=== PATIENT | female | born 1955 | race American Indian/Alaskan Native ===

== ENCOUNTER 2017-11-15 14:51 | Emergency (ER) | payer SELFPAY ==
[2017-11-15 15:19] VITALS: BP 168/98
== END 2017-11-15 19:35 | disposition left against medical advice (07) ==
LOC: ED 14:51
DX: I10 Essential (primary) hypertension (principal); Z53.21 Procedure and treatment not carried out due to patient leaving prior to being seen by health care provider

== ENCOUNTER 2019-07-18 16:54 | Emergency (ER) | payer MEDICARE ==
[2019-07-18] MEDS ORDERED: cloNIDine 0.1 MG TAB PO ONE (17:39)
--- NOTE | 2019-07-18 17:42 | Emergency Department Report ---
ED Headache HPI - General Chief Complaint: Headache Stated Complaint: HEADACHE/HTN Time Seen by Provider: 07/18/19 17:29 Source: patient Exam Limitations: no limitations - History of Present Illness Initial Comments: 64-year-old female the past medical history of hypertension, COPD, and CHF presents to the hospital complaining of frontal headache that started this afternoon. Patient states the headache was mild. She took a BC powder and had one episode of vomiting. Headache has now resolved. She denies blurry vision, syncope, focal weakness, focal numbness, or neck pain. Patient has been noncompliant with her carvedilol 12.5 mg twice daily and amlodipine 10 mg daily x1 month. A friend of hers gave her some carvedilol tablets which she restarted yesterday. She denies chest pain or shortness of breath patient also states she is currently homeless. pt has been told that she has had abnormal kidney function in the past Allergies/Adverse Reactions: Allergies No Known Allergies Allergy (Unverified 11/15/17 15:19) Home Medications: Ambulatory Orders Amlodipine Besylate [Norvasc] 10 mg PO DAILY 30 Days tablet 07/18/19 carvediloL [Coreg] 12.5 mg PO BID #60 tablet 07/18/19 ED Review of Systems ROS: Stated complaint: HEADACHE/HTN Other details as noted in HPI Comment: All other systems reviewed and negative ED Past Medical Hx - Past Medical History Previous Medical History?: Yes Hx Hypertension: Yes Hx Congestive Heart Failure: Yes Hx COPD: Yes - Social History Smoking Status: Former Smoker Substance Use Type: None - Medications Home Medications: Home Medications Medication Instructions Recorded Confirmed Last Taken Type Amlodipine Besylate [Norvasc] 10 mg PO DAILY 30 Days tablet 07/18/19 Unknown Rx carvediloL [Coreg] 12.5 mg PO BID #60 tablet 07/18/19 Unknown Rx ED Physical Exam - General Limitations: No Limitations - Other Other exam information: General: No acute distress Head: Atraumatic Eyes: normal appearance ENT: Moist mucous membranes Neck: Normal appearance, no midline tenderness, no rectal rigidity Chest: Clear to auscultation bilaterally CV: Regular rate and rhythm Abdomen: Soft, normal bowel sounds, nontender, nondistended, no rebound or guarding Back: Normal inspection Extremity: Normal inspection, full range of motion Neuro: Alert O x 3, no facial asymmetry, speech clear, no gross motor sensory deficit, [id number] function Psych: Appropriate behavior Skin: No rash, ED Course Vital Signs 07/18/19 07/18/19 07/18/19 17:41 18:02 18:28 Temperature 98.0 F Pulse Rate 81 82 83 Respiratory 36 H 30 H Rate Blood Pressure 204/133 Blood Pressure 207/115 208/122 [Left] O2 Sat by Pulse 96 97 Oximetry 07/18/19 07/18/19 07/18/19 19:02 19:20 20:28 Temperature 98.6 F Pulse Rate 78 80 86 Respiratory 30 H 19 16 Rate Blood Pressure 160/115 Blood Pressure 191/116 169/114 160/115 [Left] O2 Sat by Pulse 97 99 97 Oximetry 07/18/19 07/18/19 21:34 23:00 Temperature 98.3 F Pulse Rate 82 77 Respiratory 24 30 H Rate Blood Pressure 142/90 Blood Pressure 148/92 [Left] O2 Sat by Pulse 99 91 Oximetry ED Medical Decision Making - Lab Data Result diagrams: 07/18/19 17:51 07/18/19 17:51 Lab Results 07/18/19 07/18/19 Range/Units 17:51 17:51 WBC 6.0 (4.5-11.0) K/mm3 RBC 4.25 (3.65-5.03) M/mm3 Hgb 11.8 (10.1-14.3) gm/dl Hct 36.4 (30.3-42.9) % MCV 86 (79-97) fl MCH 28 (28-32) pg MCHC 32 (30-34) % RDW 19.2 H (13.2-15.2) % Plt Count 340 (140-440) K/mm3 Lymph % (Auto) 17.6 (13.4-35.0) % Pershing % (Auto) 9.8 H (0.0-7.3) % Eos % (Auto) 2.7 (0.0-4.3) % Baso % (Auto) 1.5 (0.0-1.8) % Lymph # 1.1 L (1.2-5.4) K/mm3 Pershing # 0.6 (0.0-0.8) K/mm3 Eos # 0.2 (0.0-0.4) K/mm3 Baso # 0.1 (0.0-0.1) K/mm3 Seg Neutrophils % 68.4 (40.0-70.0) % Seg Neutrophils # 4.1 (1.8-7.7) K/mm3 Sodium 141 (137-145) mmol/L Potassium 4.1 (3.6-5.0) mmol/L Chloride 104.2 (98-107) mmol/L Carbon Dioxide 25 (22-30) mmol/L Anion Gap 16 mmol/L BUN 44 H (7-17) mg/dL Creatinine 2.8 H (0.7-1.2) mg/dL Estimated GFR 20 ml/min BUN/Creatinine Ratio 16 % Glucose 97 (65-100) mg/dL Calcium 8.8 (8.4-10.2) mg/dL - Medical Decision Making pt pain free without physical complaints throughout entire ED period of observation Blood pressure improved after ED meds Hypertension likely secondary to noncompliance Patient noted to have renal insufficiency. No previous medical record or labs available for review. Renal/likely chronic given lack of acidosis or hyperkalemia. Patient will be provided a refill and Norvasc and carvedilol and outpatient follow-up with primary care doctor and registered route associate recommended. Patient will be advised to stay away from nephrotoxic agents including BC powder/aspirin, and NSAIDs - Differential Diagnosis Hypertensive emergency, hypertensive headache, Critical Care Time: No Critical care attestation.: If time is entered above; I have spent that time in minutes in the direct care of this critically ill patient, excluding procedure time. ED Disposition Clinical Impression: Uncontrolled hypertension, Headache, Renal insufficiency, Medical clearance for psychiatric admission Disposition: TO HOME OR SELFCARE Is pt being admited?: No Condition: Stable Instructions: Acute Headache (ED), Hypertension (ED), Impaired Kidney Function (ED) Additional Instructions: Take the medication as prescribed. Follow-up with your doctor or doctor/clinic provided. It is very important that you follow-up with both a primary care doctor and a kidney specialist for adjustments in your meds, monitoring of your blood pressure and kidney function. Return if symptoms worsen as indicated by your discharge instructions. Avoid aspirin, Goody powders, ibuprofen, NSAID, Motrin, or Aleve because these may worsen kidney function Prescriptions: carvediloL [Coreg] 12.5 mg PO BID #60 tablet Amlodipine Besylate [Norvasc] 10 mg PO DAILY 30 Days tablet Referrals: [facility] [Provider Group] - 3-5 Days (Primary care clinic) [facility] [Outside] - 3-5 Days (Primary care clinic) TJ TIM MD [Staff Physician] - 3-5 Days (Primary care doctor) LORRAINE FERNANDES MD [Primary Care Provider] - 3-5 Days CHRISTIANO STEINER MD [Staff Physician] - 3-5 Days (Primary care doctor) YANDEL WHEELER MD [Staff Physician] - 7-10 days (kidney specialist )
[2019-07-18 18:05] LABS: Basophils # (Auto) 0.1 K/mm3 (0.0-0.1); Basophils % (Auto) 1.5 % (0.0-1.8); Eosinophils # (Auto) 0.2 K/mm3 (0.0-0.4); Eosinophils % (Auto) 2.7 % (0.0-4.3); Hematocrit 36.4 % (30.3-42.9); Hemoglobin 11.8 gm/dl (10.1-14.3); Lymphocytes # (Auto) 1.1 K/mm3 (1.2-5.4); Lymphocytes % (Auto) 17.6 % (13.4-35.0); Mean Corpuscular HGB Conc 32 % (30-34); Mean Corpuscular Volume 86 fl (79-97); Monocytes # (Auto) 0.6 K/mm3 (0.0-0.8); Monocytes % (Auto) 9.8 % (0.0-7.3); Platelet Count 340 K/mm3 (140-440); Red Blood Count 4.25 M/mm3 (3.65-5.03); Red Cell Distribution Width 19.2 % (13.2-15.2)
[2019-07-18 18:24] LABS: Calcium 8.8 mg/dL (8.4-10.2)
[2019-07-18] MEDS ORDERED: amLODIPine 5 MG TAB PO ONE (19:47)
[2019-07-18 23:20] VITALS: BP 142/90
== END 2019-07-19 12:20 | disposition home or self-care (01) ==
LOC: ED 16:54
DX: N28.9 Disorder of kidney and ureter, unspecified (principal); I11.0 Hypertensive heart disease with heart failure; I50.9 Heart failure, unspecified; J44.9 Chronic obstructive pulmonary disease, unspecified; Z87.891 Personal history of nicotine dependence
CPT/HCPCS: 36415; 80048; 85025

== ENCOUNTER 2019-08-21 18:45 | Inpatient (IN) | payer MEDICARE ==
--- NOTE | 2019-08-21 19:35 | Emergency Department Report ---
ED Altered Mental Status HPI - General Chief Complaint: Altered Mental Status Stated Complaint: AMS Time Seen by Provider: 08/21/19 19:16 Source: patient, family, old records reviewed (er visit 07/18/19 for htn, headache, med noncompliance, no previous admission for review) Mode of arrival: Wheelchair Limitations: Altered Mental Status - History of Present Illness Initial Comments: 64-year-old female with a past medical history of hypertension, CHF, and COPD with home oxygen use presents to the hospital with lethargy and confusion. Apparently daughter reported that patient has had symptoms x3 days with worsening symptoms today. Patient has been noncompliant with her oxygen at home. Patient initial room air saturation upon arrival was 80 to 85%. Patient is lethargic. She will not say her name and is not oriented to place or year. She does follow some commands but requires repeated commands before performing test. She denies any pain currently. Patient satting 100% on 3 L at the bedside. O2 reduced to 2 L and ABG requested. At 9:30 PM collateral information obtained from patient's daughter maria del carmen Rubin . She states patient was discharged into a transition house during last hospital visit. Chart review patient was discharged to a transitional house after case management consultation in the ER. Pt's daughter visited her at the transition home noticed that she has been a steady decline last 3 days. She also states that patient is not always compliant with her treatment and continues to abuse crack cocaine. No history of alcohol abuse. Daughter Scottie in ED requests updates or to be called with questions. Number on demographics sheet. - Related Data Previous Rx's Medication Instructions Recorded Last Taken Type Amlodipine Besylate [Norvasc] 10 mg PO DAILY 30 Days tablet 07/18/19 Unknown Rx carvediloL [Coreg] 12.5 mg PO BID #60 tablet 07/18/19 Unknown Rx Allergies Allergy/AdvReac Type Severity Reaction Status Date / Time No Known Allergies Allergy Unverified 11/15/17 15:19 ED Review of Systems ROS: Stated complaint: AMS Other details as noted in HPI Comment: Unobtainable due to pts medical conditions ED Past Medical Hx - Past Medical History Previous Medical History?: Yes Hx Hypertension: Yes Hx Congestive Heart Failure: Yes Hx COPD: Yes - Surgical History Past Surgical History?: No - Social History Smoking Status: Former Smoker Substance Use Type: None - Medications Home Medications: Home Medications Medication Instructions Recorded Confirmed Last Taken Type Amlodipine Besylate [Norvasc] 10 mg PO DAILY 30 Days tablet 07/18/19 Unknown Rx carvediloL [Coreg] 12.5 mg PO BID #60 tablet 07/18/19 Unknown Rx ED Physical Exam - General Limitations: Altered Mental Status - Other Other exam information: General: Lethargic Head: Atraumatic Eyes: normal appearance ENT: Moist mucous membranes Neck: Normal appearance, no midline tenderness Chest: No tachypnea or accessory muscle use while on oxygen, fine crackles bilaterally without wheezing CV: Regular rate and rhythm Abdomen: Soft, normal bowel sounds, mild generalized abdominal tenderness to palpation Back: Normal inspection Extremity: Normal inspection, full range of motion Neuro: Lethargic, equal handgrip, equal knee flexion and foot dorsiflexion. Sensation grossly intact. Psych: Appropriate behavior Skin: No rash ED Course Vital Signs 08/21/19 08/21/19 08/21/19 18:53 19:22 19:30 Temperature 97.7 F Pulse Rate 88 91 H Pulse Rate [ Bilateral Throughout] Respiratory 32 H 16 Rate Respiratory Rate [Bilateral Throughout] Blood Pressure 100/81 142/99 O2 Sat by Pulse 82 L 96 97 Oximetry 08/21/19 08/21/19 08/21/19 19:40 19:45 21:37 Temperature Pulse Rate 89 89 Pulse Rate [ 88 Bilateral Throughout] Respiratory 23 41 H Rate Respiratory 24 Rate [Bilateral Throughout] Blood Pressure 106/84 137/90 O2 Sat by Pulse 100 100 Oximetry - Reevaluation(s) Reevaluation #1: 08/21/19 21:03 I called the lab about a potassium of 6.3. They state that the sample is not hemolyzed. Also got a AST was upgraded 54 and ALT result greater than 48. I have never received a result like this therefore I called the lab. I am pretty sure that the machine can result in greater then the Posted values and I am unclear why they are being resulted this way. I called the lab to see if a more specific number can be obtained. She was fine at that they will be run the same - Lab Data Result diagrams: 08/21/19 19:05 08/21/19 20:52 Lab Results 08/21/19 08/21/19 08/21/19 Range/Units 19:05 19:10 19:11 WBC 6.5 (4.5-11.0) K/mm3 RBC 4.73 (3.65-5.03) M/mm3 Hgb 12.1 (10.1-14.3) gm/dl Hct 40.6 (30.3-42.9) % MCV 86 (79-97) fl MCH 26 L (28-32) pg MCHC 30 (30-34) % RDW 18.4 H (13.2-15.2) % Plt Count 239 (140-440) K/mm3 Add Manual Diff Complete Total Counted 100 Seg Neuts % (Manual) 72.0 H (40.0-70.0) % Band Neutrophils % 0 % Lymphocytes % (Manual) 16.0 (13.4-35.0) % Reactive Lymphs % (Man) 0 % Monocytes % (Manual) 12.0 H (0.0-7.3) % Eosinophils % (Manual) 0 (0.0-4.3) % Basophils % (Manual) 0 (0.0-1.8) % Metamyelocytes % 0 % Myelocytes % 0 % Promyelocytes % 0 % Blast Cells % 0 % Nucleated RBC % Not Reportable Seg Neutrophils # Man 4.7 (1.8-7.7) K/mm3 Band Neutrophils # 0.0 K/mm3 Lymphocytes # (Manual) 1.0 L (1.2-5.4) K/mm3 Abs React Lymphs (Man) 0.0 K/mm3 Monocytes # (Manual) 0.8 (0.0-0.8) K/mm3 Eosinophils # (Manual) 0.0 (0.0-0.4) K/mm3 Basophils # (Manual) 0.0 (0.0-0.1) K/mm3 Metamyelocytes # 0.0 K/mm3 Myelocytes # 0.0 K/mm3 Promyelocytes # 0.0 K/mm3 Blast Cells # 0.0 K/mm3 WBC Morphology Not Reportable Hypersegmented Neuts Not Reportable Hyposegmented Neuts Not Reportable Hypogranular Neuts Not Reportable Smudge Cells Not Reportable Toxic Granulation Not Reportable Toxic Vacuolation Not Reportable Dohle Bodies Not Reportable Pelger-Huet Anomaly Not Reportable Sandoval Rods Not Reportable Platelet Estimate Not Reportable Clumped Platelets Not Reportable Plt Clumps, EDTA Not Reportable Large Platelets Not Reportable Giant Platelets Not Reportable Platelet Satelliting Not Reportable Plt Morphology Comment Not Reportable RBC Morphology Not Reportable Dimorphic RBCs Not Reportable Polychromasia Not Reportable Hypochromasia 1+ Poikilocytosis Not Reportable Anisocytosis 1+ Microcytosis 1+ Macrocytosis Not Reportable Spherocytes Not Reportable Pappenheimer Bodies Not Reportable Sickle Cells Not Reportable Target Cells Not Reportable Tear Drop Cells Not Reportable Ovalocytes Not Reportable Helmet Cells Not Reportable [place] Bodies Not Reportable Alpha Rings Not Reportable Carencro Cells Not Reportable Bite Cells Not Reportable Crenated Cell Not Reportable Elliptocytes Not Reportable Acanthocytes (Spur) Not Reportable Rouleaux Not Reportable Hemoglobin C Crystals Not Reportable Schistocytes Not Reportable Malaria parasites Not Reportable Alexander Bodies Not Reportable Hem Pathologist Commnt No PT 13.8 (12.2-14.9) Sec. INR 1.05 (0.87-1.13) ABG pH (7.350-7.450) pH Units ABG pCO2 mm Hg ABG pO2 (80.0-90.0) mm Hg ABG HCO3 (20.0-26.0) mmol/L ABG O2 Saturation (95.0-99.0) % ABG O2 Content (0.0-44) ABG Base Excess (-2.0-3.0) mmol/L ABG Hemoglobin (12.0-16.0) gm/dl ABG Carboxyhemoglobin (0.0-5.0) % ABG Methemoglobin (0.0-1.5) % Oxyhemoglobin (95.0-99.0) % FiO2 % Sodium (137-145) mmol/L Potassium (3.6-5.0) mmol/L Chloride (98-107) mmol/L Carbon Dioxide (22-30) mmol/L Anion Gap mmol/L BUN (7-17) mg/dL Creatinine (0.7-1.2) mg/dL Estimated GFR ml/min BUN/Creatinine Ratio % Glucose (65-100) mg/dL POC Glucose 95 (70-105) Calcium (8.4-10.2) mg/dL Total Bilirubin (0.1-1.2) mg/dL Direct Bilirubin (0-0.2) mg/dL Indirect Bilirubin mg/dL AST (5-40) units/L ALT (7-56) units/L Alkaline Phosphatase (35-129) units/L Ammonia (25-60) umol/L Total Creatine Kinase (30-135) units/L Troponin T (0.00-0.029) ng/mL NT-Pro-B Natriuret Pep (0-900) pg/mL Total Protein (6.3-8.2) g/dL Albumin (3.9-5) g/dL Albumin/Globulin Ratio % Triglycerides (2-149) mg/dL Cholesterol (50-199) mg/dL LDL Cholesterol Direct (50-130) mg/dL HDL Cholesterol (40-59) mg/dL Cholesterol/HDL Ratio % TSH (0.270-4.200) mlU/mL Free T4 (0.76-1.46) ng/dL 08/21/19 08/21/19 08/21/19 Range/Units 19:11 19:11 19:11 WBC (4.5-11.0) K/mm3 RBC (3.65-5.03) M/mm3 Hgb (10.1-14.3) gm/dl Hct (30.3-42.9) % MCV (79-97) fl MCH (28-32) pg MCHC (30-34) % RDW (13.2-15.2) % Plt Count (140-440) K/mm3 Add Manual Diff Total Counted Seg Neuts % (Manual) (40.0-70.0) % Band Neutrophils % % Lymphocytes % (Manual) (13.4-35.0) % Reactive Lymphs % (Man) % Monocytes % (Manual) (0.0-7.3) % Eosinophils % (Manual) (0.0-4.3) % Basophils % (Manual) (0.0-1.8) % Metamyelocytes % % Myelocytes % % Promyelocytes % % Blast Cells % % Nucleated RBC % Seg Neutrophils # Man (1.8-7.7) K/mm3 Band Neutrophils # K/mm3 Lymphocytes # (Manual) (1.2-5.4) K/mm3 Abs React Lymphs (Man) K/mm3 Monocytes # (Manual) (0.0-0.8) K/mm3 Eosinophils # (Manual) (0.0-0.4) K/mm3 Basophils # (Manual) (0.0-0.1) K/mm3 Metamyelocytes # K/mm3 Myelocytes # K/mm3 Promyelocytes # K/mm3 Blast Cells # K/mm3 WBC Morphology Hypersegmented Neuts Hyposegmented Neuts Hypogranular Neuts Smudge Cells Toxic Granulation Toxic Vacuolation Dohle Bodies Pelger-Huet Anomaly Sandoval Rods Platelet Estimate Clumped Platelets Plt Clumps, EDTA Large Platelets Giant Platelets Platelet Satelliting Plt Morphology Comment RBC Morphology Dimorphic RBCs Polychromasia Hypochromasia Poikilocytosis Anisocytosis Microcytosis Macrocytosis Spherocytes Pappenheimer Bodies Sickle Cells Target Cells Tear Drop Cells Ovalocytes Helmet Cells [place] Bodies Alpha Rings Grace Cells Bite Cells Crenated Cell Elliptocytes Acanthocytes (Spur) Rouleaux Hemoglobin C Crystals Schistocytes Malaria parasites Alexander Bodies Hem Pathologist Commnt PT (12.2-14.9) Sec. INR (0.87-1.13) ABG pH (7.350-7.450) pH Units ABG pCO2 mm Hg ABG pO2 (80.0-90.0) mm Hg ABG HCO3 (20.0-26.0) mmol/L ABG O2 Saturation (95.0-99.0) % ABG O2 Content (0.0-44) ABG Base Excess (-2.0-3.0) mmol/L ABG Hemoglobin (12.0-16.0) gm/dl ABG Carboxyhemoglobin (0.0-5.0) % ABG Methemoglobin (0.0-1.5) % Oxyhemoglobin (95.0-99.0) % FiO2 % Sodium 134 L (137-145) mmol/L Potassium 6.3 H* (3.6-5.0) mmol/L Chloride 88.5 L (98-107) mmol/L Carbon Dioxide 29 (22-30) mmol/L Anion Gap 23 mmol/L BUN 57 H (7-17) mg/dL Creatinine 3.2 H (0.7-1.2) mg/dL Estimated GFR 18 ml/min BUN/Creatinine Ratio 18 % Glucose 87 (65-100) mg/dL POC Glucose (70-105) Calcium 9.3 (8.4-10.2) mg/dL Total Bilirubin 0.30 (0.1-1.2) mg/dL Direct Bilirubin (0-0.2) mg/dL Indirect Bilirubin mg/dL AST > 54 H (5-40) units/L ALT > 48 (7-56) units/L Alkaline Phosphatase 124 (35-129) units/L Ammonia 46.0 (25-60) umol/L Total Creatine Kinase (30-135) units/L Troponin T (0.00-0.029) ng/mL NT-Pro-B Natriuret Pep (0-900) pg/mL Total Protein 6.9 (6.3-8.2) g/dL Albumin 3.8 L (3.9-5) g/dL Albumin/Globulin Ratio 1.2 % Triglycerides (2-149) mg/dL Cholesterol (50-199) mg/dL LDL Cholesterol Direct (50-130) mg/dL HDL Cholesterol (40-59) mg/dL Cholesterol/HDL Ratio % TSH 1.020 (0.270-4.200) mlU/mL Free T4 1.00 (0.76-1.46) ng/dL 08/21/19 08/21/19 08/21/19 Range/Units 19:11 19:11 19:45 WBC (4.5-11.0) K/mm3 RBC (3.65-5.03) M/mm3 Hgb (10.1-14.3) gm/dl Hct (30.3-42.9) % MCV (79-97) fl MCH (28-32) pg MCHC (30-34) % RDW (13.2-15.2) % Plt Count (140-440) K/mm3 Add Manual Diff Total Counted Seg Neuts % (Manual) (40.0-70.0) % Band Neutrophils % % Lymphocytes % (Manual) (13.4-35.0) % Reactive Lymphs % (Man) % Monocytes % (Manual) (0.0-7.3) % Eosinophils % (Manual) (0.0-4.3) % Basophils % (Manual) (0.0-1.8) % Metamyelocytes % % Myelocytes % % Promyelocytes % % Blast Cells % % Nucleated RBC % Seg Neutrophils # Man (1.8-7.7) K/mm3 Band Neutrophils # K/mm3 Lymphocytes # (Manual) (1.2-5.4) K/mm3 Abs React Lymphs (Man) K/mm3 Monocytes # (Manual) (0.0-0.8) K/mm3 Eosinophils # (Manual) (0.0-0.4) K/mm3 Basophils # (Manual) (0.0-0.1) K/mm3 Metamyelocytes # K/mm3 Myelocytes # K/mm3 Promyelocytes # K/mm3 Blast Cells # K/mm3 WBC Morphology Hypersegmented Neuts Hyposegmented Neuts Hypogranular Neuts Smudge Cells Toxic Granulation Toxic Vacuolation Dohle Bodies Pelger-Huet Anomaly Sandoval Rods Platelet Estimate Clumped Platelets Plt Clumps, EDTA Large Platelets Giant Platelets Platelet Satelliting Plt Morphology Comment RBC Morphology Dimorphic RBCs Polychromasia Hypochromasia Poikilocytosis Anisocytosis Microcytosis Macrocytosis Spherocytes Pappenheimer Bodies Sickle Cells Target Cells Tear Drop Cells Ovalocytes Helmet Cells [place] Bodies Alpha Rings Carencro Cells Bite Cells Crenated Cell Elliptocytes Acanthocytes (Spur) Rouleaux Hemoglobin C Crystals Schistocytes Malaria parasites Alexander Bodies Hem Pathologist Commnt PT (12.2-14.9) Sec. INR (0.87-1.13) ABG pH 7.257 L (7.350-7.450) pH Units ABG pCO2 77.5 mm Hg ABG pO2 65.6 L (80.0-90.0) mm Hg ABG HCO3 33.8 H (20.0-26.0) mmol/L ABG O2 Saturation 91.8 L (95.0-99.0) % ABG O2 Content 14.9 (0.0-44) ABG Base Excess 4.6 H (-2.0-3.0) mmol/L ABG Hemoglobin 11.8 L (12.0-16.0) gm/dl ABG Carboxyhemoglobin 2.2 (0.0-5.0) % ABG Methemoglobin 0.6 (0.0-1.5) % Oxyhemoglobin 89.2 L (95.0-99.0) % FiO2 28 % Sodium (137-145) mmol/L Potassium (3.6-5.0) mmol/L Chloride (98-107) mmol/L Carbon Dioxide (22-30) mmol/L Anion Gap mmol/L BUN (7-17) mg/dL Creatinine (0.7-1.2) mg/dL Estimated GFR ml/min BUN/Creatinine Ratio % Glucose (65-100) mg/dL POC Glucose (70-105) Calcium (8.4-10.2) mg/dL Total Bilirubin (0.1-1.2) mg/dL Direct Bilirubin (0-0.2) mg/dL Indirect Bilirubin mg/dL AST (5-40) units/L ALT (7-56) units/L Alkaline Phosphatase (35-129) units/L Ammonia (25-60) umol/L Total Creatine Kinase (30-135) units/L Troponin T 0.051 H (0.00-0.029) ng/mL NT-Pro-B Natriuret Pep 80879 H (0-900) pg/mL Total Protein (6.3-8.2) g/dL Albumin (3.9-5) g/dL Albumin/Globulin Ratio % Triglycerides 135 (2-149) mg/dL Cholesterol 158 (50-199) mg/dL LDL Cholesterol Direct 82 (50-130) mg/dL HDL Cholesterol 47 (40-59) mg/dL Cholesterol/HDL Ratio 3.36 % TSH (0.270-4.200) mlU/mL Free T4 (0.76-1.46) ng/dL 08/21/19 08/21/19 08/21/19 Range/Units 20:52 20:54 20:54 WBC (4.5-11.0) K/mm3 RBC (3.65-5.03) M/mm3 Hgb (10.1-14.3) gm/dl Hct (30.3-42.9) % MCV (79-97) fl MCH (28-32) pg MCHC (30-34) % RDW (13.2-15.2) % Plt Count (140-440) K/mm3 Add Manual Diff Total Counted Seg Neuts % (Manual) (40.0-70.0) % Band Neutrophils % % Lymphocytes % (Manual) (13.4-35.0) % Reactive Lymphs % (Man) % Monocytes % (Manual) (0.0-7.3) % Eosinophils % (Manual) (0.0-4.3) % Basophils % (Manual) (0.0-1.8) % Metamyelocytes % % Myelocytes % % Promyelocytes % % Blast Cells % % Nucleated RBC % Seg Neutrophils # Man (1.8-7.7) K/mm3 Band Neutrophils # K/mm3 Lymphocytes # (Manual) (1.2-5.4) K/mm3 Abs React Lymphs (Man) K/mm3 Monocytes # (Manual) (0.0-0.8) K/mm3 Eosinophils # (Manual) (0.0-0.4) K/mm3 Basophils # (Manual) (0.0-0.1) K/mm3 Metamyelocytes # K/mm3 Myelocytes # K/mm3 Promyelocytes # K/mm3 Blast Cells # K/mm3 WBC Morphology Hypersegmented Neuts Hyposegmented Neuts Hypogranular Neuts Smudge Cells Toxic Granulation Toxic Vacuolation Dohle Bodies Pelger-Huet Anomaly Sandoval Rods Platelet Estimate Clumped Platelets Plt Clumps, EDTA Large Platelets Giant Platelets Platelet Satelliting Plt Morphology Comment RBC Morphology Dimorphic RBCs Polychromasia Hypochromasia Poikilocytosis Anisocytosis Microcytosis Macrocytosis Spherocytes Pappenheimer Bodies Sickle Cells Target Cells Tear Drop Cells Ovalocytes Helmet Cells [place] Bodies Alpha Rings [place]cro Cells Bite Cells Crenated Cell Elliptocytes Acanthocytes (Spur) Rouleaux Hemoglobin C Crystals Schistocytes Malaria parasites Alexander Bodies Hem Pathologist Commnt PT (12.2-14.9) Sec. INR (0.87-1.13) ABG pH (7.350-7.450) pH Units ABG pCO2 mm Hg ABG pO2 (80.0-90.0) mm Hg ABG HCO3 (20.0-26.0) mmol/L ABG O2 Saturation (95.0-99.0) % ABG O2 Content (0.0-44) ABG Base Excess (-2.0-3.0) mmol/L ABG Hemoglobin (12.0-16.0) gm/dl ABG Carboxyhemoglobin (0.0-5.0) % ABG Methemoglobin (0.0-1.5) % Oxyhemoglobin (95.0-99.0) % FiO2 % Sodium (137-145) mmol/L Potassium 5.6 H (3.6-5.0) mmol/L Chloride (98-107) mmol/L Carbon Dioxide (22-30) mmol/L Anion Gap mmol/L BUN (7-17) mg/dL Creatinine (0.7-1.2) mg/dL Estimated GFR ml/min BUN/Creatinine Ratio % Glucose (65-100) mg/dL POC Glucose (70-105) Calcium (8.4-10.2) mg/dL Total Bilirubin 0.30 (0.1-1.2) mg/dL Direct Bilirubin < 0.2 (0-0.2) mg/dL Indirect Bilirubin 0.1 mg/dL AST 46 H (5-40) units/L ALT 49 (7-56) units/L Alkaline Phosphatase 127 (35-129) units/L Ammonia (25-60) umol/L Total Creatine Kinase 73 (30-135) units/L Troponin T (0.00-0.029) ng/mL NT-Pro-B Natriuret Pep (0-900) pg/mL Total Protein 6.8 (6.3-8.2) g/dL Albumin 3.8 L (3.9-5) g/dL Albumin/Globulin Ratio 1.3 % Triglycerides (2-149) mg/dL Cholesterol (50-199) mg/dL LDL Cholesterol Direct (50-130) mg/dL HDL Cholesterol (40-59) mg/dL Cholesterol/HDL Ratio % TSH (0.270-4.200) mlU/mL Free T4 (0.76-1.46) ng/dL - EKG Data -: EKG Interpreted by Me (biatrial enlargement) EKG shows normal: sinus rhythm, ST-T waves (no stemi) Rate: normal (88) When compared to previous EKG there are: previous EKG unavailable - Radiology Data Radiology results: report reviewed CHEST 1 VIEW 08/21/2019 7:13 PM INDICATION / CLINICAL INFORMATION: sob. Lethargy and confusion. COMPARISON: None available. FINDINGS: SUPPORT DEVICES: None. HEART / MEDIASTINUM: Heart is mildly enlarged. LUNGS / PLEURA: No acute airspace disease. Mild prominence of interstitial lung markings which may be chronic. No pneumothorax. ADDITIONAL FINDINGS: No significant additional findings. IMPRESSION: 1. No acute findings. 2. Mild cardiomegaly. 3. Mild chronic interstitial lung disease. CT head/brain wo con INDICATION / CLINICAL INFORMATION: 64 years Female; ams. TECHNIQUE: Routine CT head without contrast. All CT scans at this location are performed using CT dose reduction for ALARA by means of automated exposure control. COMPARISON: None. 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 Small lacunar infarct is seen in the right gangliocapsular region, most likely subacute to chronic in age. Otherwise, no acute hemorrhage, mass effect, midline shift, hydrocephalus, or acute, large territorial infarct. Mild cerebral atrophy. Findings are mildly, asymmetrically more prominent in the parietal lobe regions. There are mild areas of decreased attenuation in the white matter of the cerebral hemispheres, as well as the gangliocapsular regions. These are nonspecific findings and may be related to microangiopathy (hypertension, diabetes, atherosclerosis), given the patient's age. It might be difficult to evaluate for small areas of ischemia wit hout diffusion imaging by MRI. CRANIOCERVICAL JUNCTION: No significant abnormality. ORBITS: No significant abnormality of visualized orbits. SINUSES / MASTOIDS: No significant abnormality in the visualized paranasal sinuses or mastoid air cells. ADDITIONAL FINDINGS: Atherosclerotic disease is seen in the anterior circulation. IMPRESSION: 1. No focal mass, hemorrhage, hydrocephalus, or acute, large territorial infarct. - Medical Decision Making repeat K 5.6, patient received albuterol, Lasix, normal saline, calcium gluconate, D50, insulin, and one episode of bicarb for mild hyperkalemia without associated EKG finding Patient alteration likely secondary to respiratory acidosis and CO2 retention. Chronic noncompliance as per patient's daughter. BiPAP initiated in the ED with supplemental oxygenation Patient has slightly worse renal function compared to previous ED visit last month Positive history of crack abuse as per daughter. UDS and UA pending at disposition Mild troponin elevation noted and likely secondary to underlying renal sufficie ncy. No ischemic findings on EKG. Repeat pending. Aspirin provided Critical care attestation.: If time is entered above; I have spent that time in minutes in the direct care of this critically ill patient, excluding procedure time. ED Disposition Clinical Impression: Altered mental status, Noncompliance, History of crack cocaine use, Acute on chronic renal insufficiency, Hyperkalemia, Ascites, Troponin level elevated, Acute respiratory acidosis Disposition: [id number] OP ADMIT IP TO THIS HOSP Is pt being admited?: Yes Does the pt Need Aspirin: Yes Condition: Stable Time of Disposition: 21:54 (Dr Tan/hosp)
[2019-08-21 19:53] LABS: Mean Corpuscular HGB Conc 30 % (30-34); Mean Corpuscular Volume 86 fl (79-97); Platelet Count 239 K/mm3 (140-440); Red Blood Count 4.73 M/mm3 (3.65-5.03); Red Cell Distribution Width 18.4 % (13.2-15.2)
[2019-08-21 19:57] LABS: ABG Base Excess 4.6 mmol/L (-2.0-3.0); ABG HCO3 33.8 mmol/L (20.0-26.0); ABG Methemoglobin 0.6 % (0.0-1.5); ABG Oxygen Saturation 91.8 % (95.0-99.0); ABG PCO2 77.5 mm Hg; ABG PH 7.257 pH Units (7.350-7.450); ABG PO2 65.6 mm Hg (80.0-90.0)
[2019-08-21 20:00] LABS: Hematocrit 40.6 % (30.3-42.9); Hemoglobin 12.1 gm/dl (10.1-14.3)
[2019-08-21 20:03] LABS: INR 1.05 (0.87-1.13)
[2019-08-21 20:19] LABS: Albumin 3.8 g/dL (3.9-5); BUN/Creatinine Ratio 18; Blood Urea Nitrogen 57 mg/dL (7-17); Calcium 9.3 mg/dL (8.4-10.2); Hemolysis Index 103
[2019-08-21 20:35] LABS: Alanine Aminotransferase > 48 units/L (7-56)
[2019-08-21] MEDS ORDERED: ALBUTEROL 2.5 MG/3 ML NEBU IH ONE (20:40)
[2019-08-21] MEDS ORDERED: CALCIUM GLUCONATE 1,000 MG in SODIUM CHLORIDE 0.9% 100 ML IV ONE (20:42)
[2019-08-21] MEDS ORDERED: ASPIRIN 325 MG TAB PO ONE (20:44)
[2019-08-21] MEDS ORDERED: SODIUM BICARB 8.4% 50 MEQ/50 ML SYRINGE IV ONE (20:48)
[2019-08-21] MEDS ORDERED: DEXTROSE 50% IN WATER (25GM) 50 ML VIAL IV ONE (20:50)
[2019-08-21] MEDS ORDERED: INSULIN REGULAR, HUMAN 100 UNITS/1 ML IV ONE (20:50)
[2019-08-21] MEDS ORDERED: SODIUM CHLORIDE 0.9% 1000 ML 1,000 ML IV ONE (20:52)
[2019-08-21] MEDS ORDERED: FUROSEMIDE 20 MG/2 ML INJ IV ONE (20:52)
[2019-08-21] MEDS ORDERED: DEXTROSE 50% IN WATER (25GM) 50 ML SYRINGE IV ONE (21:00)
[2019-08-21 21:06] LABS: Chol/HDL Ratio 3.36 %
[2019-08-21] MEDS ORDERED: FUROSEMIDE 40 MG/4 ML INJ IV ONE (21:11)
[2019-08-21 21:22] LABS: Alanine Aminotransferase 49 units/L (7-56); Albumin 3.8 g/dL (3.9-5)
[2019-08-21 21:26] LABS: Bilirubin,Direct < 0.2 mg/dL (0-0.2)
[2019-08-21 21:41] LABS: Anisocytosis 1+; Basophils % (Manual) 0 % (0.0-1.8); Eosinophils % (Manual) 0 % (0.0-4.3); Hypochromasia 1+; Total Cells Counted 100
[2019-08-21] MEDS ORDERED: SODIUM CHLORIDE 0.9% 500 ML 500 ML IV ONE (21:45)
[2019-08-21 22:53] LABS: ABG Base Excess 5.7 mmol/L (-2.0-3.0); ABG Methemoglobin 0.5 % (0.0-1.5); ABG Oxygen Saturation 96.5 % (95.0-99.0); ABG PCO2 80.4 mm Hg; ABG PH 7.257 pH Units (7.350-7.450); ABG PO2 88.2 mm Hg (80.0-90.0)
[2019-08-21] MEDS ORDERED: ASPIRIN 300 MG RECT SUPP PR ONE (22:58)
[2019-08-21 23:07] LABS: Bacteria,Urine 1+ /HPF (Negative); Bilirubin,Urine NEG (Negative); Blood,Urine NEG (Negative); Color,Urine Yellow (Yellow); Mucus,Urine FEW /HPF; Urobilinogen,Urine < 2.0 mg/dL (<2.0)
[2019-08-21 23:16] LABS: Benzodiazepines Screen,Urine PRESUMPTIVE NEGATIVE; Cannabinoid Screen,Urine PRESUMPTIVE NEGATIVE; Methadone Screen,Urine PRESUMPTIVE NEGATIVE; Opiate Screen,Urine PRESUMPTIVE NEGATIVE
[2019-08-21] MEDS ORDERED: methylPREDNISolone Sod Succinate 125 MG/2 ML INJ ONE (23:23)
[2019-08-21] MEDS: methylPREDNISolone Sod Succinate 125 MG/2 ML INJ IV SCH (23:26)
[2019-08-21 23:36] LABS: Amphetamine Screen,Urine PRESUMPTIVE NEGATIVE
[2019-08-21 23:37] LABS: Creatine Kinase MB 2.4 ng/mL (0.0-4.0)
[2019-08-21 23:49] LABS: Cocaine Screen,Urine PRESUMPTIVE POSITIVE
[2019-08-22 00:28] LABS: ABG Base Excess 7.3 mmol/L (-2.0-3.0); ABG HCO3 36.3 mmol/L (20.0-26.0); ABG Methemoglobin 0.6 % (0.0-1.5); ABG Oxygen Saturation 88.9 % (95.0-99.0); ABG PCO2 78.1 mm Hg; ABG PH 7.286 pH Units (7.350-7.450)
[2019-08-22] MEDS ORDERED: ACETAMINOPHEN 325 MG TAB PO PRN (00:49)
[2019-08-22] MEDS ORDERED: ONDANSETRON 4 MG/2 ML INJ IV PRN (00:49)
[2019-08-22] MEDS ORDERED: DEXTROSE 50% IN WATER (25GM) 50 ML SYRINGE IV ONE (01:48)
[2019-08-22] MEDS ORDERED: IPRATROPIUM/ALBUTEROL SULFATE 3 ML AMPUL.NEB IH ONE ×2 (02:59→18:29)
[2019-08-22] MEDS: IPRATROPIUM/ALBUTEROL SULFATE 3 ML AMPUL.NEB IH SCH ×3 (03:00→18:34)
[2019-08-22 04:23] LABS: Mean Corpuscular HGB Conc 30 % (30-34); Mean Corpuscular Volume 86 fl (79-97); Platelet Count 228 K/mm3 (140-440); Red Blood Count 4.83 M/mm3 (3.65-5.03); Red Cell Distribution Width 18.7 % (13.2-15.2)
[2019-08-22 04:32] LABS: Hematocrit 41.7 % (30.3-42.9); Hemoglobin 12.6 gm/dl (10.1-14.3)
[2019-08-22 04:42] LABS: Calcium 9.3 mg/dL (8.4-10.2)
[2019-08-22 04:43] LABS: Creatine Kinase MB 2.4 ng/mL (0.0-4.0)
[2019-08-22 05:53] LABS: Basophils % (Manual) 0 % (0.0-1.8); Eosinophils % (Manual) 0 % (0.0-4.3); Total Cells Counted 100
[2019-08-22 05:54] LABS: Anisocytosis Few; Ovalocytes Rare; Target Cells Few
[2019-08-22 05:55] LABS: Platelet Estimate Consistent w Auto; Spherocytes Few
[2019-08-22] MEDS ORDERED: methylPREDNISolone Sod Succinate 125 MG/2 ML INJ ONE ×3 (06:06→19:14)
[2019-08-22] MEDS: methylPREDNISolone Sod Succinate 125 MG/2 ML INJ IV SCH ×3 (06:09→19:15)
[2019-08-22 12:49] LABS: ABG Base Excess 7.3 mmol/L (-2.0-3.0); ABG HCO3 36.1 mmol/L (20.0-26.0); ABG Methemoglobin 0.6 % (0.0-1.5); ABG Oxygen Saturation 98.2 % (95.0-99.0); ABG PCO2 73.4 mm Hg; ABG PH 7.31 pH Units (7.350-7.450); ABG PO2 129.4 mm Hg (80.0-90.0)
[2019-08-22] MEDS ORDERED: ENOXAPARIN 30 MG/0.3 ML INJ SUB-Q ONE (13:08)
[2019-08-22] MEDS: ENOXAPARIN 30 MG/0.3 ML INJ SUB-Q SCH (13:33)
[2019-08-23] MEDS: methylPREDNISolone Sod Succinate 125 MG/2 ML INJ IV SCH ×3 (00:11→12:00)
[2019-08-23] MEDS: IPRATROPIUM/ALBUTEROL SULFATE 3 ML AMPUL.NEB IH SCH ×4 (00:15→13:31)
[2019-08-23] MEDS: ENOXAPARIN 30 MG/0.3 ML INJ SUB-Q SCH (10:00)
[2019-08-23 12:53] VITALS: BP 138/93
[2019-08-23] MEDS ORDERED: predniSONE 10 MG TAB PO SCH ×2 (13:00→14:00)
[2019-08-23] MEDS ORDERED: AZITHROMYCIN 250 MG TAB PO SCH (13:00)
[2019-08-25] MEDS ORDERED: predniSONE 10 MG TAB PO SCH (10:00)
[2019-08-28] MEDS ORDERED: predniSONE 10 MG TAB PO SCH (10:00)
[2019-09-01] MEDS ORDERED: predniSONE 10 MG TAB PO SCH (10:00)
== END 2019-08-23 14:14 | disposition home or self-care (01) | DRG 189 ==
LOC: ED 18:45 → IMCU 22:41 → 4A 08-22 19:55
PROVIDERS: ADMIT Internal Medicine; ATTEND Internal Medicine
PROC: 4A033R1 Measurement of Arterial Saturation, Peripheral, Percutaneous Approach (ICD-10-PCS; principal; 2019-08-21)
PROC: 5A09357 Assistance with Respiratory Ventilation, Less than 24 Consecutive Hours, Continuous Positive Airway Pressure (ICD-10-PCS; 2019-08-21)
PROC: 5A09357 Assistance with Respiratory Ventilation, Less than 24 Consecutive Hours, Continuous Positive Airway Pressure (ICD-10-PCS; 2019-08-22)
PROC: 5A09357 Assistance with Respiratory Ventilation, Less than 24 Consecutive Hours, Continuous Positive Airway Pressure (ICD-10-PCS; 2019-08-23)
DX: J96.21 Acute and chronic respiratory failure with hypoxia (principal); R18.8 Other ascites; E87.2 Acidosis; J44.1 Chronic obstructive pulmonary disease with (acute) exacerbation; I13.0 Hypertensive heart and chronic kidney disease with heart failure and stage 1 through stage 4 chronic kidney disease, or unspecified chronic kidney disease; J96.22 Acute and chronic respiratory failure with hypercapnia; N18.9 Chronic kidney disease, unspecified; F14.10 Cocaine abuse, uncomplicated; I50.9 Heart failure, unspecified; Z79.899 Other long term (current) drug therapy; Z91.14 Patient's other noncompliance with medication regimen
CPT/HCPCS: 36415; 36600; 70450; 71045; 74176; 80048; 80053; 80061; 80076; 80307; 81001; 82140; 82550; 82553; 82803; 82962; 83880; 84132; 84439; 84443; 84484; 85007; 85025; 85610; 93005; 94640; 94644; 94660; 94760; G0378; J0610; J1650; J1815; J1940; J2930; J7030; J7040; J7512